=== PATIENT | female | born 2005 | race African-American/Black ===

== ENCOUNTER 2023-02-11 06:08 | Emergency (ER) | payer SELFPAY ==
--- NOTE | ~2023-02-11 | US_ITS ---
EXAMINATION: US transvaginal DATE: 02/11/2023 08:43 INDICATION: Miscarriage. Vaginal bleeding. TECHNIQUE: Multiple transvaginal sonographic images of the pelvis were obtained. COMPARISON: None. FINDINGS: The uterus measures 7.0 x 4.1 x 3.2 cm. There is no free fluid in the pelvis. The endometrial complex measures 2 mm in thickness. The right ovary measures 2.7 x 1.9 x 2.0 cm. The left ovary measures 3.3 x 2.1 x 1.7 cm. There is normal vascular flow in the ovaries. IMPRESSION: 1. Normal pelvis. Reviewed, dictated and finalized at location A. IMPRESSION: 1. Normal pelvis.
[2023-02-11 06:13] VITALS: BP 117/84; PULSE 89; RESP 18; TEMP 36.1; O2SAT 100
--- NOTE | 2023-02-11 07:37 | ED.FEMALEGU ---
HPI - Female Genitourinary General Chief complaint: Vaginal Bleeding Stated complaint: miscarriage Time Seen by Provider: 02/11/23 07:22 Source: patient Mode of arrival: ambulatory Limitations: no limitations History of Present Illness HPI Narrative: 17 years old -[place] female presents to the ED with vaginal bleed that started at 430 this morning with clots and cramps. Last menstrual period December 09, patient tested positive for twice at home. Patient never been before. Related Data Allergies Allergy/AdvReac Type Severity Reaction Status Date / Time No Known Allergies Allergy Verified 02/11/23 07:32 Review of Systems Review of Systems: All systems reviewed & are unremarkable except as noted in HPI and below Exam Narrative: General appearance: Well-developed, well-nourished Skin: Normal color Head: Normocephalic, nontraumatic Eyes: Clear conjunctiva ENT: Oropharynx normal, ears normal, nose normal Neck: Supple, nontender Chest and respiratory: Airway patent, no respiratory distress, no accessory muscle use Heart: Regular rate/rhythm Abdomen: Soft, nontender, no organomegaly, quiet bowel sounds Vascular: Normal peripheral pulses, normal capillary refill. Musculoskeletal: Normal range of motion, nontender back Neurologic: Alert and oriented ?3, [employer] is normal as tested, no gross motor deficit Course Reevaluation(s) Reevaluation #1: No new changes Date: 02/11/23 Time: 09:06 Vital Signs Vital signs: Vital Signs Temperature 36.1 C L 02/11/23 06:13 Pulse Rate 89 02/11/23 06:13 Respiratory Rate 18 02/11/23 06:13 Blood Pressure 117/84 02/11/23 06:13 Pulse Oximetry 100 02/11/23 06:13 Temperature 36.1 C L 02/11/23 06:13 Pulse Rate 71 02/11/23 07:40 Respiratory Rate 18 02/11/23 07:40 Blood Pressure 119/80 02/11/23 07:40 Pulse Oximetry 98 02/11/23 07:40 MDM - Female Genitourinary MDM Narrative Medical decision making narrative: Patient reports that last minutes well. Was November 2022, came with vaginal bleeding started few hours prior to arrival to the emergency room. Patient believes that she have miscarriage. Work-up showed that the patient is not . False alarm. Diagnosis at the time of discharge is menstruation. Differential Diagnosis Differential diagnosis: Likely other (Miscarriage, threatened , ectopic , menstrual cycle) Lab Data 02/11/23 07:47 Labs: Lab Results 02/11/23 02/11/23 02/11/23 Range/Units 07:47 07:47 07:47 WBC 7.4 (4.5-10.0) K/mm3 RBC 5.49 H (4.2-5.4) M/mm3 Hgb 12.8 (12.0-15.0) g/dL Hct 39.7 (37.0-47.0) % MCV 72.3 L (80-100) fl MCH 23.3 L (26-34) pg MCHC 32.2 (32-36) g/dl RDW 16.3 H (11.5-14.5) % Plt Count 169 (150-375) k/mm3 MPV TNP Immature Gran % (Auto) 0.3 (0-0.5) % Neut % (Auto) 50.9 (45.5-73.1) % Lymph % (Auto) 39.5 (18.3-44.2) % [place] % (Auto) 8.1 (2.6-8.5) % Eos % (Auto) 0.9 (0-4.4) % Baso % (Auto) 0.3 (0.2-1.2) % Lymph # (Auto) 2.91 (0.9-3.2) K/mm3 [place] # (Auto) 0.6 (0.1-0.6) K/mm3 Eos # (Auto) 0.1 (0-0.3) K/mm3 Baso # (Auto) 0.0 (0.0-0.1) K/mm3 Abs Immat Gran (auto) 0.02 (0.00-0.031) K/mm3 Absolute Neuts (auto) 3.8 (1.3-6.7) K/mm3 Absolute Nucleated RBC 0.0 (0.0-0.012) K/mm3 Nucleated RBC % 0.0 (0.0-0.2) % Platelet Estimate Adequate (Adequate) Large Platelets Present % Immature Plt Fraction 14.6 H (0.9-11.2) % Anisocytosis 1+ (NORMAL) Target Cells 1+ (NORMAL) Schistocytes None seen (NORMAL) Beta HCG, Quant < 2.39 mIU/ML Blood Ty
[2023-02-11 07:40] VITALS: BP 119/80; PULSE 71; RESP 18; O2SAT 98
[2023-02-11 07:59] LABS: Basophils Percent Auto 0.3 % (0.2-1.2); Eosinophils Absolute Auto 0.1 K/mm3 (0-0.3); Eosinophils Percent Auto 0.9 % (0-4.4); Hematocrit 39.7 % (37.0-47.0); Hemoglobin 12.8 g/dL (12.0-15.0); Immature Granulocyte Absolute 0.02 K/mm3 (0.00-0.031); Immature Granulocyte Percent A 0.3 % (0-0.5); Immature Platelet Fraction Pct 14.6 % (0.9-11.2); Lymphocytes Absolute Auto 2.91 K/mm3 (0.9-3.2); Lymphocytes Percent Auto 39.5 % (18.3-44.2); Mean Corpuscular HGB Conc 32.2 g/dl (32-36); Mean Corpuscular Hemoglobin 23.3 pg (26-34); Mean Corpuscular Volume 72.3 fl (80-100); Monocytes Absolute Auto 0.6 K/mm3 (0.1-0.6); Monocytes Percent Auto 8.1 % (2.6-8.5); Neutrophils Absolute Auto 3.8 K/mm3 (1.3-6.7); Neutrophils Percent Auto 50.9 % (45.5-73.1); Platelet Count Result 169 k/mm3 (150-375); Red Blood Count 5.49 M/mm3 (4.2-5.4); Red Cell Distribution Width 16.3 % (11.5-14.5); White Blood Count 7.4 K/mm3 (4.5-10.0)
[2023-02-11] MEDS: SODIUM CHLORIDE 0.9% IV 1,000 ML 999 ML IV CONT (08:00)
[2023-02-11 08:11] LABS: Large Platelets Present; Platelet Estimate Adequate (Adequate)
[2023-02-11 08:12] LABS: Anisocytosis 1+ (NORMAL); Schistocytes None Seen (NORMAL); Target Cells 1+ (NORMAL)
[2023-02-11 08:31] LABS: Beta HCG Quantitative < 2.39 mIU/ML
[2023-02-11 09:41] VITALS: BP 125/73; PULSE 74; RESP 18; O2SAT 100
== END 2023-02-11 09:42 | disposition home or self-care (01) ==
PROVIDERS: Emergency Provider Emergency Medicine
DX: N93.9 Abnormal uterine and vaginal bleeding, unspecified (principal)
CPT/HCPCS: 36415; 76830; 81025; 84702; 85025; 85055; 85461; 86850; 86900; 86901; 96360; 99284; J7030